=== PATIENT | female | born 1940 ===

== ENCOUNTER 2021-04-09 05:46 | Observation (INO) ==
--- NOTE | 2021-02-24 09:48 | PAT Medication Instructions ---
Medication Instructions Date of Service February 24, 2021 Home Medications calcium citrate 315 mg calcium-vitamin D3 6.25 mcg (250 unit) tablet 1 tab PO QAM hydrochlorothiazide 25 mg tablet 25 mg PO QAM multivitamin 1 tab PO QAM acetaminophen [Tylenol Arthritis Pain] 650 mg PO HS atorvastatin 10 mg PO HS cholecalciferol (vitamin D3) [Vitamin D3] 125 mcg PO QAM famotidine [Pepcid] 20 mg PO QAM glucos sul [id number] [Glucosamine Chondroitin] 1 cap PO QAM magnesium 400 mg PO QAM melatonin 10 mg PO HS PRN vitamin B complex 1 tab PO QAM STOP taking 2 weeks before surgery (or as soon as possible if surgery is within 2 weeks) glucos sul [id number] [Glucosamine Chondroitin] 1 cap PO QAM DO NOT take the morning of surgery calcium citrate 315 mg calcium-vitamin D3 6.25 mcg (250 unit) tablet 1 tab PO QAM hydrochlorothiazide 25 mg tablet 25 mg PO QAM multivitamin 1 tab PO QAM cholecalciferol (vitamin D3) [Vitamin D3] 125 mcg PO QAM famotidine [Pepcid] 20 mg PO QAM magnesium 400 mg PO QAM vitamin B complex 1 tab PO QAM Take evening before surgery acetaminophen [Tylenol Arthritis Pain] 650 mg PO HS atorvastatin 10 mg PO HS melatonin 10 mg PO HS PRN (if needed) Other Notes If you have any questions please call us at [phone] or [phone] or [phone] or [phone]
--- NOTE | 2021-02-25 11:40 | Anesthesiology Consultation ---
Date of Service February 25, 2021 Assessment & Plan (1) Encounter for pre-operative examination: - Abnormal preop testing: PRWP on preop EKG. No previous comparison EKGs available. Also, hyponatremia with sodium of 128 on preop labs. No known hx of hyponatremia reported. Awaiting response from PCP. - COVID screening: Per assessment on 02/25: Travel screen- traveled to [place] for family outdoor wedding via car (02/10-02/18). No further travel or large gatherings planned prior to surgery. Patient fully vaccinated. No known COVID-19 positive contacts or current COVID-19 related symptoms. Surgeon arranging preop COVID testing (scheduled 04/05; [place]). Awaiting results. Chart Review Chart Review: Patient seen in Pre Admission Testing Teaching & Discussion Pre-Anesthesia Teaching/Discussion Notes: Instructed NPO after midnight before surgery,except medications with 15 cc of water. Medication instructions provided according to the PAT guidelines. History Surgery Operation Date: 04/09/21 09:20 Proposed Procedures p Laparoscopic Removal of Right Fallopian Tube and Ovary - Carmen Flowers MD s Hysteroscopy - Carmen Flowers MD s Dilation of the Cervix and Curettage with Possible Removal of Polyp or Lesion - Carmen Flowers MD Height/Weight Height: 5 ft 4 in Weight: 64.4 kg Allergies Allergy/AdvReac Type Severity Reaction Status Date / Time No Known Allergies Allergy Verified 02/25/21 10:45 Medications Home Medications Medication Instructions Recorded Confirmed Last Taken calcium citrate 315 mg 1 tab PO QAM 07/25/19 02/25/21 Unknown calcium-vitamin D3 6.25 mcg (250 unit) tablet hydrochlorothiazide 25 mg tablet 25 mg PO QAM tab 07/25/19 02/25/21 Unknown multivitamin 1 tab PO QAM 07/25/19 02/25/21 Unknown acetaminophen [Tylenol Arthritis 650 mg PO HS 04/21/20 02/25/21 Unknown Pain] atorvastatin 10 mg PO HS 04/21/20 02/25/21 Unknown cholecalciferol (vitamin D3) 125 mcg PO QAM 04/21/20 02/25/21 Unknown [Vitamin D3] famotidine [Pepcid] 20 mg PO QAM 04/21/20 02/25/21 Unknown glucos sul [id number]-azg-[id number]-C-Mn 1 cap PO QAM 04/21/20 02/25/21 Unknown [Glucosamine Chondroitin] magnesium 400 mg PO QAM 04/21/20 02/25/21 Unknown melatonin 10 mg PO HS PRN 04/21/20 02/25/21 Unknown vitamin B complex 1 tab PO QAM 04/21/20 02/25/21 Unknown Past Medical History Medical History Chronic back pain follows with chiropractor Depression GERD (gastroesophageal reflux disease) occasionally History of ovarian cyst Hyperlipidemia Hypertension Osteoarthritis Exercise / Class Metabolic Activity III < 4 Walking/Shop/Light housework (no chest pain or sob with walking) Past Family History Family History Aunt Breast cancer maternal x 3 Other No family history of adverse response to anesthesia Denies family history of Ovarian cancer Colorectal cancer Past Surgical History Surgical History H/O ovarian cystectomy History of colonoscopy Past Anesthesia History No Hx of Anesthesia Complications and No Family Hx of Anesthesia Complications History of PONV No Hx of PONV and No Hx of Motion Sickness Social History Smoking Status: Never smoker Do You Dip or Chew Tobacco: No Hx Alcohol Use: Yes Alcohol type: wine alcohol intake frequency: 0-2 drinks per day (2 glasses wine/day) Hx Substance Use: No substance use type: does not use Review of Systems Patient denies chest pain, shortness of breath, fever, chills, cough, wheezing, palpitations. Physical Exam Vital Signs VITALS BP 146/80 P 70 TEMP SP02 96%RA RESP 16 PHYSICAL Full cervical extension range of motion. Full TMJ range of motion. TMD 3.5 finger breaths Mallampati Score 3 Dentition: single removable teeth left upper side Lungs: clear throughout to auscultation Cardiac: regular rate and rhythm, no murmurs noted Spine: normal Carotid arteries: negative bruit Extremities: no edema Testing Laboratory Results 02/25/21 12:01 02/25/21 12:01 Blood Type O Positive 02/25/21 12:01 Antibody Screen NEGATIVE 02/25/21 12:01 Electrocardiogram Date: 02/25/21 NSR at 64bpm. PRWP (consider anterior TX vs. lead placement vs. LVH). No cardiopulmonary complaints at PAT visit from same day.
[2021-02-25 12:38] LABS: Basophils # (auto) 0.03 K/uL (0-0.2); Basophils % (auto) 0.4 %; Eosinophils # (auto) 0.11 K/uL (0-0.5); Eosinophils % (auto) 1.4 %; Hematocrit (blood only) 41.4 % (37-47); Hemoglobin 14.2 g/dL (12.0-16.0); Immature Granulocytes # (auto) 0.02 K/uL (0.00-0.02); Immature Granulocytes % (auto) 0.2 %; Lymphocytes # (auto) 1.55 K/uL (1.2-3.4); Lymphocytes % (auto) 19.3 %; Mean Corpuscular Hemoglobin 30.4 pg (25-34); Mean Corpuscular Hgb Conc 34.3 g/dL (32-36); Mean Corpuscular Volume 88.7 fL (80-100); Mean Platelet Volume 9.2 fL (7.4-10.4); Monocytes # (auto) 0.67 K/uL (0.11-0.59); Monocytes % (auto) 8.3 %; Neutrophils # (auto) 5.65 K/uL (1.4-6.5); Neutrophils % (auto) 70.4 %; Platelet Count 306 K/uL (130-400); RDW Coefficient of Variation 13.6 % (11.5-14.5); RDW Standard Deviation 44.6 fL (36.4-46.3); Red Blood Count 4.67 M/uL (4.2-5.4); White Blood Count 8.03 K/uL (4.8-10.8)
--- NOTE | 2021-02-25 13:41 | Electrocardiogram Report ---
Test Reason : Blood Pressure : / mmHG Vent. Rate : 064 BPM Atrial Rate : 064 BPM P-R Int : 134 ms QRS Dur : 082 ms QT Int : 422 ms P-R-T Axes : 054 046 054 degrees QTc Int : 435 ms Normal sinus rhythm Poor R wave progression, consider anterior MD vs. lead placement vs. LVH Abnormal ECG No previous ECGs available Confirmed by Omari Jhaveri ([id number]) on 02/25/2021 1:40:53 PM Referred By: Carmen Flowers Confirmed By:Omari Jhaveri
[2021-02-25 14:57] LABS: BUN Creatinine Ratio 14.7 (10-20); Calcium 9.4 mg/dl (8.5-10.1); Creatinine Clr Calc Pharmacy 65.7 ml/min; Est GFR (African American) 100.5; Est GFR (Non-African American) 86.7; Potassium 3.9 mmol/L (3.5-5.1)
[2021-04-09] MEDS ORDERED: ceFAZolin 2000MG 2,000 MG/15 ML SYR IV SCH (06:00)
[2021-04-09] MEDS ORDERED: LR 15ML/HR IV SCH (06:00)
[2021-04-09] MEDS ORDERED: LACTATED RINGER'S 1,000 ML IV SCH ×2 (06:00→11:45)
[2021-04-09] MEDS ORDERED: MIDAZOLAM HCL 1 MG/ML 2ML VIAL ONE (07:00)
[2021-04-09] MEDS ORDERED: fentaNYL citrate 100 MCG/2 ML VIAL ONE ×4 (07:01→12:41)
[2021-04-09] MEDS ORDERED: LIDOCAINE 2% 2 ML VIAL/AMP(20MG/ML) INFIL ONE (07:04)
[2021-04-09] MEDS ORDERED: PROPOFOL IV EMULSION 10 MG/ML 20 ML VIAL IV ONE (07:04)
[2021-04-09] MEDS ORDERED: DEXAMETHASONE SOD INJ 4 MG/ML VIAL ONE ×2 (07:04→08:15)
[2021-04-09] MEDS ORDERED: ROCURONIUM BROMIDE 10 MG/ML 5 ML VIAL IV ONE ×7 (07:04→10:30)
[2021-04-09] MEDS ORDERED: ONDANSETRON INJ 2 MG/ML 2 ML VIAL ONE (07:04)
[2021-04-09] MEDS ORDERED: ACETAMINOPHEN 1000 MG/100 ML IV IV ONE (07:06)
[2021-04-09] MEDS ORDERED: FAMOTIDINE/PF 20 MG/2 ML VIAL IV ONE (07:06)
--- NOTE | 2021-04-09 07:18 | History & Physical Report ---
Date of Service April 09, 2021 Assessment & Plan (1) Thickened endometrium: (2) Right ovarian cyst: History of Present Illness Chief Complaint: ThickenedEL, R ovarian cyst Primary Care Provider: Dali Bermudez See prior EMAIL MARKETING MANAGER note from 02/25/21 for full details. Patient referred by Dr. Flynn for thickened EL without VB, and for enlarging R ovarian cyst now 11cm. For D&C Hysteroscopy and RSO, patient seen for consult x2 and agreeable to proceed. H&P being updated in pre-op area as prior one just over 30 days and . Patient and present and providing history today. Allergies Allergy/AdvReac Type Severity Reaction Status Date / Time No Known Allergies Allergy Verified 04/09/21 06:16 Home Medications Medication Instructions Recorded Confirmed Type calcium citrate 315 mg 1 tab PO QAM 07/25/19 04/09/21 History calcium-vitamin D3 6.25 mcg (250 unit) tablet hydrochlorothiazide 25 mg tablet 25 mg PO QAM tab 07/25/19 04/09/21 History multivitamin 1 tab PO QAM 07/25/19 04/09/21 History acetaminophen [Tylenol Arthritis 650 mg PO HS 04/21/20 04/09/21 History Pain] atorvastatin 10 mg PO HS 04/21/20 04/09/21 History cholecalciferol (vitamin D3) 125 mcg PO QAM 04/21/20 04/09/21 History [Vitamin D3] famotidine [Pepcid] 20 mg PO QAM 04/21/20 04/09/21 History glucos sul [id number]-ubn-dldfb-C-Mn 1 cap PO QAM 04/21/20 04/09/21 History [Glucosamine Chondroitin] magnesium 400 mg PO QAM 04/21/20 04/09/21 History melatonin 10 mg PO HS PRN 04/21/20 04/09/21 History vitamin B complex 1 tab PO QAM 04/21/20 04/09/21 History Patient History Medical History Chronic back pain follows with chiropractor Depression GERD (gastroesophageal reflux disease) occasionally History of ovarian cyst Hyperlipidemia Hypertension Osteoarthritis Surgical History H/O ovarian cystectomy History of colonoscopy Family History Aunt Breast cancer maternal x 3 Other No family history of adverse response to anesthesia Denies family history of Ovarian cancer Colorectal cancer Social History Smoking Status: Never smoker Second Hand Exposure: No; Do You Dip or Chew Tobacco: No; Tobacco Cessation Education Requested by Patient: No Hx Alcohol Use: Yes Alcohol type: wine Hx Substance Use: No Preferred Language: Macanese Communication Ability: Effective Ell Teacher Required: No Beliefs That Will Affect Care: None Current Living Situation: Spouse Other Information That Helps Us Care for You: No Feels Safe at Home: Yes Safety Concerns: Feels Safe At This Time Assistive Devices: Glasses Physical Exam Constitutional: WD/WN, vitals as above Eyes: PERRL, conjunctivae normal, anicteric sclerae ENMT: Ears: no hearing impairment and no external ear abnormality Nose: no external nose abnormality Mouth: no lip abnormality Neck: trachea midline, no thyromegaly normal visual inspection Respiratory: normal respiratory effort and able to speak in complete sentences; no respiratory distress and no labored breathing Cardiovascular: Rate/Rhythm: regular rate and regular rhythm Extremities: no edema Chest (Breasts): Additional Comments: clothed observation, appears normal age- appropriate breast development Musculoskeletal: Head/Neck/Chest: normocephalic and head atraumatic Extremities: extremities normal to inspection Gait: normal gait Skin: no rashes, warm and dry Neurologic: PERRL, EOMI, accommodation nl, no face palsy, no dysarthria awake Motor/Sensory: normal movement Psychiatric: A+Ox3, euthymic affect Results & Data ([facility]) Vital Signs (Past 12 Hours) Vital Signs Temp Pulse Resp BP Pulse Ox 04/09/21 06:20 97.9 F 75 16 159/71 H 100 Coding Level of Care Code None Diagnoses Thickened endometrium R93.89 Right ovarian cyst N83.201
[2021-04-09] MEDS ORDERED: GLYCOPYRROLATE 0.2 MG/ML VIAL ONE (08:55)
[2021-04-09] MEDS ORDERED: NEOSTIGMINE METHYLSULFATE 1 MG/ML 10ML VIAL ONE (08:55)
[2021-04-09] MEDS ORDERED: KETOROLAC 30 MG/ML VIAL ONE (11:14)
[2021-04-09] MEDS ORDERED: PROMETHAZINE HCL 12.5 MG in SODIUM CHLORIDE 0.9% 50 ML IV PRN (11:32)
[2021-04-09] MEDS ORDERED: MEPERIDINE HCL 50 MG/ML CARP IV PRN ×2 (11:32→18:00)
[2021-04-09] MEDS ORDERED: ACETAMINOPHEN 325 MG TAB PO PRN (11:32)
[2021-04-09] MEDS ORDERED: oxyCODONE/ACETAMINOPHEN 5mg/325mg TAB PO PRN ×2 (11:32)
[2021-04-09] MEDS ORDERED: ONDANSETRON INJ 2 MG/ML 2 ML VIAL IV PRN ×2 (11:32→12:38)
--- NOTE | 2021-04-09 11:32 | Post Operative Brief Note ---
PG Immediate Post Op with CF Date of Surgery April 09, 2021 Pre & Post Diagnosis Operation Date: 04/09/21 07:30 Pre-Op Diagnosis: Thickened Endometrium, Right Ovarian Cyst Post-Op Diagnosis: Thickened Endometrium, Right Ovarian Cyst I identified the patient and participated in the time-out.: Yes Procedure Operation Date: 04/09/21 07:30 Planned Procedures: Robotic-Assisted Laparoscopic Right Salpingo-Oophorectomy Dilation and Curettage, Hysteroscopy Actual Procedures Robotic-Assisted Laparoscopic Total Hysterectomy, Bilateral Salpingo- oophorectomy Lysis of Adhesions Cystoscopy Dilation of the cervix, Hysteroscopy Surgeon Carmen Flowers MD Hose Inspector And Patcher Merle Muñoz MD Estimated Blood Loss 150 Findings See Below Specimens Specimen Description: A. right ovary and fallopian tube B. uterus, cervix, left fallopian tube and ovary Drains [place] Catheter Anesthesia Type General Complications Perforation of uterine body during hysteroscopic portion of procedure with injury of uterine artery on left. Conversion of laparoscopic portion of procedure to total laparoscopic hysterectomy, BSO, cystoscopy. Disposition Accompanied Patient To Recovery: Yes Disposition: Recovery Room Overlapping Procedure I was immediately available: during the entire case.
--- NOTE | 2021-04-09 12:25 | Operative Report ---
PG Post Operative Report Pre & Post Diagnosis Operation Date: 04/09/21 07:30 Pre-Op Diagnosis: Thickened Endometrium, Right Ovarian Cyst Post-Op Diagnosis: Intracavitary endometrial mass with vascularity, Right Ovarian Cyst I identified the patient and participated in the time-out.: Yes Procedure Planned Procedures: Robotic-Assisted Laparoscopic Right Salpingo-Oophorectomy Dilation and Curettage, Hysteroscopy Actual Procedures: Robotic-Assisted Laparoscopic Total Hysterectomy, Bilateral Salpingo- oophorectomy Lysis of Adhesions Cystoscopy Dilation of the cervix, Hysteroscopy Surgeon Carmen Flowers MD Front Desk Monitor Merle Muñoz MD Estimated Blood Loss 150 Findings See Below Specimens Specimen Description: A. right ovary and fallopian tube B. uterus, cervix, left fallopian tube and ovary Drains Oconnor catheter Anesthesia Type General Complications Perforation of uterine body during hysteroscopic portion of procedure with injury of uterine artery on left. Conversion of laparoscopic portion of procedure to total laparoscopic hysterectomy, BSO, cystoscopy. Disposition Accompanied Patient To Recovery: Yes Disposition: Recovery Room Description of Procedure The patient was brought to the operating room and placed on the table. I was present with her prior to establishment of general anesthesia, and for placement of second IV site. She was then carefully placed in dorsal lithotomy position with yellofin stirrups, padded, prepped and draped in standard sterile fashion, and a hard time out was taken prior to proceeding. The first portion of the procedure was planned to be her D&C Hysteroscopy. The vagina was narrow and atrophic c/w age and postmenopausal status, so use of a weighted speculum was impossible. Right angle and [place] specula were used to visualize the cervix, which was flat and difficult to identify, so bimanual exam was used at several points to confirm correct identification of anatomy. The anterior lip was grasped with a tenaculum. The os was identified and dilated first with a lacrimal probe, which passed easily, then with Taylor dilators which passed easily to about 2cm depth then continued to pass smoothly but were noted to tend to turn 90 degrees on axis as they passed. Sounding depth was 6cm. Dilation to 15fr proceeded without any sign of bleeding from the os. Hysteroscope was introduced and tissue c/w possible fatty and calcified material was seen, as well as 300cc NSS deficit quickly occurring, so hysteroscopy was discontinued due to suspicion of perforation. However I was uncertain of perforation, as there was also no bleeding evident in our view, the space did appear to be confined, and visualization was difficult. No bleeding was seen on withdrawal of the scope. Attention was turned to the abdomen where I then intended to proceed with the laparoscopic portion of her case, which would also allow exam of any perforation present, and after which we could re-attempt hysteroscopy under direct vi sualization from above. Supra-umbilical entry was made visually with a 5mm camera and 8mm robotic trocar port, without complication. The abdomen was insufflated and the patient was placed in steep Trendelenburg. Under direct visualization, right and left lower quadrant ports were placed without complication. Survey of the abdomen revealed the expected grossly-enlarged R ovary with its fallopian tube stretched across the surface and its fimbriae easily visible, a fibroid uterus with significant distortion, a normal L fallopian tube and a streak left ovary. There were significant adhesions of the right ovary to the pelvic sidewall and to the bowels. No perforation site was immediately evident on the uterus and no free saline or blood were seen in the abdomen. I proceeded by identifying and marking the fallopian tube and ligating / dividing this at the cornu, as well as identifying the peritoneum along the anterolateral pelvic sidewall where no significant structures reside and beg inning to incise this using sharp/cold technique. Hugging the edge of the grossly enlarged ovary, the peritoneum was incised to free the ovary from where it was adhesed densely to the wall to mobilize it and allow visualization of the IP, the ureter, and other relevant anatomy down at the pelvic brim. Gradually as I worked my way towards the pelvic brim I was able to free the ovary from adhesions to the bowel, sidewall, to identify and skeletonize the IP, to ligate and divide it, and to further skeletonize the structures passing over the pelvic brim until I could clearly identify the iliac vessels and the right ureter. Elevating the ovary away from these structures I continued to bluntly and sharply, but always with cold technique, free the ovary from its adhesions to local structures to mobilize it more and more. When I could no longer proceed clearly in that manner, I re-approached from the anterior surface and was then able to roll the ovary medially enough to free it from the remaining mesosalpinx, to expose and to ligate/divide the utero-ovarian ligament, and to therefore completely isolate the ovary from its major blood supply. The remaining dissection proceeded with a back and forth rocking motion of the ovary to allow access to each remaining area of adhesive disease. When only bowel adhesions remained, unfortunately a pinhole developed in the ovary through which water-clear fluid did express. The ovary slowly deflated as these remaining adhesions were carefully lysed. An area where the small bowel was particularly adherent to the ovary was lysed last, carefully using cold sharp dissection to separate only translucent single layer tissue in the plane between them as it became visible in painstaking manner. Once completely free, the ovary was placed in a 5mm endocatch bag, and in its deflated state was able to be retrieved via the RLQ trocar site. The trocar was replaced after the endocatch bag and ovary were removed. The uterus was manipulated gently to examine more closely for perforation site, now that the large ovary had been removed from the way. Adhesions of the bowel to the L adnexal structures prevented perfect view of that area, but moving those adhesions side to side did not reveal any perforation, nor did exam of anterior or posterior cul-de-sacs, and there was certainly no significant pool of saline. Unsure if there had truly been a perforation, I parked the laparoscopic camera aimed at the uterus and returned to attempt at hysteroscopy while leaving the laparoscopic view in place for myself. I was able to re-identify the anterior lip of the cervix which I grasped with an Allis as the tenaculum tore quickly through the fragile tissue upon replacement. A 15fr dilator was gently passed to confirm the prior tract. Laparoscopically the tip of the instrument could not be seen, but a bulge appearing towards the L, possibly in the space of Retzius, suggested the existence of a false passage. At that time I requested an 11-blade and made a cruciate incision at the external os, through which a small amount of mucus extruded which had not previously been seen. The dilators were passed through this opening and were seen to lift the uterine fundus, though passage of the dilators was quite difficult as they would go straight for about 2cm then, as before, would tend to "want to" turn 90-degrees and project laterally. I was able to guide them with laparoscopic visibility to where they appeared to be elevating the uterine fundus, then place the hysteroscope. By watching the scope enter and following the tracts available, I was able to enter the true uterine cavity on ONE pass. At that time I was clearly able to visualize two ostia and one solitary mass in the cavity with a clear, calcified, hypervascular, multilobular nature. I withdrew the scope and tried to follow the same entry path with a polyp forcep to grasp the mass, but unfortunately was unable to find the correct tract without a scope to enter, in the process creating one new laparoscopically- visible posterior uterine perforation. I tried replacing the scope to at least get a small sample of this mass using a hysteroscopic forcep, but at that point could not successfully re-locate the uterine cavity even with the scope, and continued to feel the scope being forced towards the patient's left along a false tract. Fluid deficit was approaching 1L, most of which was clearly in the under-drape bag and on the floor due to poor function of the fluid management system (a replacement was requested from the surgical center during this pr ocess). I was noting a slight but definite fullness of the L broad ligament beginning to appear. There was no shadowing or appearance of hematoma, rather a bloated and edematous appearance to the broad ligament and L fallopian tube. At that point I felt sure there was a false tract into the L broad ligament making it difficult for me to access the cavity safely. I asked my partner Dr. Muñoz to join me in the OR to provide assistance. My hope was that I could clear away remaining adhesions blocking our view of the left posterior uterus where a perforation seemed most likely to exist, and provide elevation of the uterus using laparoscopic instruments so that the posterior aspect of the uterus and cervix would be visible (which they were not with the scope simply pointed at the pelvis), while she attempted placement of the scope back into the cavity with full guidance from both her camera and mine. Knowing there was a mass in the uterus and a perforation, I felt getting at least a biopsy of the mass to further direct care merited this additional effort. I moved to the laparoscopic controls and she prepared for hysteroscopy. At this time a blush began to be evident along the left fallopian tube inside the mesosalpinx / behind the peritoneum, which I noted verbally and asked if she also felt was different from just a few minutes before. She agreed this was new. I was concerned, at that point, for injury to the left uterine artery or other vascular structure which could be causing a retroperitoneal hematoma where before there had only appeared to be saline hydrodistention. The patient being in trendelenburg and bowel adhesions making it difficult to see any of the peritoneal surface superior to that location left me concerned that although this blush was newly visible, the bleeding might already be significant. Our anesthesia [facility]ORSERAD[facility] MAKER Dm Manzanares did note the patient was stable and vitals continued to be good. I discussed with Dr. Muñoz that I thought exploring the left retroperitoneum was necessary. We briefly debated whether to isolate and ligate the IP on that side and sacrifice the ovary, vs convert to a TLH to provide both hemostasis / exploration and removal of whatever is in the uterus for surgical diagnosis and treatment planning, vs take the time to contact the patient's for considering options. At that time I did not feel we had the luxury of time to call her , and the best option seemed to be opening the retroperitoneum without delay and beginning with ligation of the IP ligament, while planning as a team in the OR for probable conversion to TLH/BSO/Cysto, and possible but less likely laparotomy. The left IP ligament was isolated by creation of a peritoneal window using cold/sharp dissection, ligated with bipolar cautery, and divided. It was immediately evident on entry to the retroperitoneum that a hematoma had begun to form at the left uterine artery, estimated at about 2-3cm in size, but there did not as yet appear to be much hemodissection of the retroperitoneal space superiorly from that point. The decision was made quickly to ligate the uterine artery proximal to this injury and convert to TLH. An attempt was made by Dr. Muñoz to place a V-Care manipulator, but similar difficulties were encountered as with the hysteroscope, with the stem tending to curve laterally through a false channel into the broad ligament instead of into the uterine cavity. Therefore I asked her to push the colpotomy cup to the tip of the manipulator stick and hold it against the cervix manually to provide anatomic landmarks without uterine manipulation. This allowed me to rapidly ligate the uterine, stop the patient's bleeding, and proceed to complete a hysterectomy in essentially the usual manner. Each round ligament was ligated and then divided. The anterior leaflets of the broad ligament were dissected to create a bladder flap which was gently mobilized downward below the colpotomy cup ridge. The right uterine artery was skeletonized, ligated, and then divided. Circumferential colpotomy was then completed following the colpotomy cup guide at the anterior / 12-o-clock location, and thereafter, the cup was backed away and the cervix was grasped with the bipolar while the scissors were used to colpotomize in the vaginal fornix circumferentially. The cervix, uterus and bilateral tubes were then retrieved en bloc via the vagina. The atrophic vaginal canal and the misshapen / enlarged fibroid uterus did pose some challenge but by retrieving the uterus via cervix, then grasping and leading with one cornu, it was retrieved in one piece with uterus/cervix/left ovary/left tube all together. Dr. Muñoz noted on a brief gross exam that the cervical stroma had a brittle, crumbly nature with calcified, hard fibroids in the lower uterine segment which may have been the reason our instruments felt as though they were being redirected laterally as they reached above the cervix during dilation and placement. With the uterus, cervix, both tubes and both ovaries thus removed, exam of the pelvis revealed good hemostasis with no further enlargement of the retroperitoneal spaces, no shadowing of the pelvic sidewalls or posterior abdominal wall, and good movement of both ureters. At this point, with Dr. Muñoz remaining scrubbed to assist in changing instruments for vaginal cuff closure, I stepped aside to call the patient's and notify him of the changes in her procedure to TLH/BSO/Cystoscopy due to uterine perforation with injury of the left uterine artery, as well as mass in the uterine cavity that was unable to be safely sampled. I reassured him she was tolerating her procedure well and that bleeding had been controlled, and explained that I would prefer to keep her for overnight observation given her age and the unexpected change, despite the fact that many patients who have a planned TLH/BSO/Cysto do in fact go home as she had intended to do. He expressed his satisfaction with the choice to perform a hysterectomy rather than taking the time to call and discuss with him first; his preference would have been that we proceed quickly to definitive treatment of any bleeding rather than to preserve her reproductive organs. I let him know I would be returning to complete her surgery and would speak with him and Elvira both this afternoon when she was awake. The vaginal cuff was then closed using V-Latricia suture in the typical running non- locked fashion, incorporating the uterosacral ligaments bilaterally. The needle was retrieved through a trocar, and suction/irrigation was then used to remove any debris and ensure good hemostasis at all working sites by serially flushing and observing each pedicle and de-peritonealized area. Further copious irrigation of all surfaces was employed out of consideration for spillage of the watery/serous contents of the R ovary. Sharp cold dissection of the sigmoid colon's physiologic attachments to the L pelvic sidewall allowed mobilization of the colon downwards to demonstrate normal condition of the retroperitoneal space above the L pelvic brim, with no evidence of hydro- or hemo-dissection to suggest large fluid losses that had gone undetected. Cystoscopy was then utilized to examine the bladder dome which was free of suture or injury. In consideration of patient's age, despite normal creatinine value preoperatively, no methylene blue dye was used for cystoscopy. The ureteral orifices were observed until a good strong jet of yellow urine was seen from each. The bladder was then drained and a fresh Oconnor catheter was placed. The robot was then undocked, and abdominal trocar sites were closed using 4-0 monocryl at each of the three skin incisions. A dermabond dressing was applied to each site. A final vaginal exam ensured no materials were present in the vagina and the cuff was intact. A small freely bleeding laceration was identified at 9 o'clock on the vaginal wall just superior to the hymenal ring, and a 4-0 vicryl figure of eight suture was placed to achieve hemostasis. The patient was then transferred in stable condition to the recovery room. Again in consideration of her age, despite normal renal function to date, a conservative dose of 15mg toradol was approved by this surgeon to be given by [facility]KER in the OR. I attest to the content of the Intraoperative Record and any orders documented therein. Any exceptions are noted below.
[2021-04-09] MEDS ORDERED: HYDROmorphone INJ 2 MG/ML SYR/VIAL IV PRN (12:38)
[2021-04-09] MEDS ORDERED: ePHEDrine sulfate 50 MG/ML AMP IV PRN (12:38)
[2021-04-09] MEDS ORDERED: ATROPINE SULFATE 0.1 MG/ML 10ML SYR IV PRN (12:38)
--- NOTE | 2021-04-09 12:39 | Anesthesiology Progress Note ---
Date of Service April 09, 2021 Anesthesia Post Procedure Vital Signs Vital Signs: Temp Pulse Pulse Resp BP BP Pulse Ox 04/09/21 12:35 36.4 C L 63 18 154/68 H 100 04/09/21 12:25 60 16 156/66 H 100 04/09/21 12:15 60 20 159/62 H 99 04/09/21 12:05 66 18 166/77 H 100 04/09/21 11:55 69 14 167/70 H 100 04/09/21 11:45 77 14 166/65 H 100 04/09/21 11:38 36.0 C L 87 16 172/75 H 100 04/09/21 06:20 36.6 C 75 16 159/71 H 100 Pain Intensity Lower Abdomen: Pain Intensity: 5 Transfer of Care Handoff Completed per policy Notes Mental Status: alert / awake / arousable Patient Amnestic to Procedure: Yes Nausea / Vomiting: adequately controlled Pain: adequately controlled Airway Patency, RR, SpO2: stable & adequate BP & HR: stable & adequate Hydration State: stable & adequate Anesthetic Complications: no major complications apparent
[2021-04-09] MEDS: fentaNYL citrate 100 MCG/2 ML VIAL IV PRN ×2 (12:42→12:47)
[2021-04-09] MEDS ORDERED: COUGH DROP (SUGAR FREE) LOZ 24 LOZ/1 BOX BUCCAL ONE (13:50)
[2021-04-09 15:50] LABS: Hematocrit (blood only) 39.6 % (37-47); Hemoglobin 13.7 g/dL (12.0-16.0)
[2021-04-09] MEDS ORDERED: IBUPROFEN 600 MG TAB PO PRN (19:19)
[2021-04-10 06:21] LABS: Hematocrit (blood only) 29.4 % (37-47); Hemoglobin 10.1 g/dL (12.0-16.0); Mean Corpuscular Hemoglobin 30.9 pg (25-34); Mean Corpuscular Hgb Conc 34.4 g/dL (32-36); Mean Corpuscular Volume 89.9 fL (80-100); Mean Platelet Volume 8.5 fL (7.4-10.4); Platelet Count 221 K/uL (130-400); RDW Coefficient of Variation 13.7 % (11.5-14.5); RDW Standard Deviation 45.3 fL (36.4-46.3); Red Blood Count 3.27 M/uL (4.2-5.4); White Blood Count 7.52 K/uL (4.8-10.8)
[2021-04-10 06:22] LABS: Basophils # (auto) 0.01 K/uL (0-0.2); Basophils % (auto) 0.1 %; Eosinophils # (auto) 0.05 K/uL (0-0.5); Eosinophils % (auto) 0.7 %; Immature Granulocytes # (auto) 0.01 K/uL (0.00-0.02); Immature Granulocytes % (auto) 0.1 %; Lymphocytes # (auto) 1.86 K/uL (1.2-3.4); Lymphocytes % (auto) 24.7 %; Neutrophils # (auto) 4.69 K/uL (1.4-6.5); Neutrophils % (auto) 62.4 %
[2021-04-10 06:47] LABS: BUN Creatinine Ratio 13.5 (10-20); Est GFR (African American) 101.5 ml/min; Est GFR (Non-African American) 87.6 ml/min; Potassium 3.8 mmol/L (3.5-5.1)
--- NOTE | 2021-04-10 09:24 | Discharge Summary ---
Date of Service April 10, 2021 Admission HPI Per Admitting Provider See prior [employer] note from 02/25/21 for full details. Patient referred by Dr. Flynn for thickened EL without VB, and for enlarging R ovarian cyst now 11cm. For D&C Hysteroscopy and RSO, patient seen for consult x2 and agreeable to proceed. H&P being updated in pre-op area as prior one just over 30 days and . Patient and present and providing history today. Discharge Data Procedures Performed Operation Date: 04/09/21 07:30 Actual Procedures p Laparoscopic assisted Robotic Total Hysterectomy, bilateral salpingo- oopherectomy, cystoscopy(Right) - Carmen Flowers MD s Dilation of the Cervix and Curettage, hysteroscopy(Not Applicable) - Carmen Flowers MD Hospital Course (1) Right ovarian cyst: Patient underwent RSO and D&C Hysteroscopy which were ultimately converted to TLH/BSO/Cysto due to iatrogenic injury of R uterine artery during hysteroscopy and after discovery of an intracavitary uterine mass that was unable to be safely sampled. The patient recovered well during her 23 hour post op observation and will be sent home pod#1 with #10 percocet for prn use, follow up in 2 and 6 weeks, and was instructed on strict pelvic rest as well as other post op care and restrictions. (2) Thickened endometrium: Coding Level of Care Code D/C Day Management <30 mins Diagnoses Right ovarian cyst N83.201 Thickened endometrium R93.89
== END 2021-04-10 09:38 | disposition home or self-care (01) ==
LOC: ASU 05:46 → 4N 05:46